=== PATIENT | male | born 1960 | race Caucasian/White ===

== ENCOUNTER 2018-10-04 03:59 | Inpatient (IN) | payer BC ==
[~2018-10-04] VITALS: Ht 177.8 cm; Wt 125.6 kg
--- NOTE | 2018-10-04 04:53 | PHYS DOC ---
Adult General Chief Complaint Chief Complaint: MULTIPLE COMPLAINTS HPI HPI 58-year-old male presents with 2 day history of fever and chills. The patient has alternated between hot and cold. He has had some shaking chills and cold sweats. He checked his temperature one time and it was 102.5. It improved after Tylenol. His last Tylenol dose was 7 hours ago. The patient has felt nauseous, but does not have abdominal pain. He is not vomiting. He's had no diarrhea. He has not had any bowel movement today. There is no area of pain or discomfort. He denies dysuria or urinary frequency. He's had decreased urination. (JOSE CAVANAUGH DO) Review of Systems Review of Systems Constitutional: Fever and chills[] Eyes: Denies change in visual acuity, redness, or eye pain [] HENT: Denies nasal congestion or sore throat [] Respiratory: Denies cough or shortness of breath [] Cardiovascular: No additional information not addressed in HPI [] GI: Denies abdominal pain, nausea, vomiting, bloody stools or diarrhea [] : Denies dysuria or hematuria [] Musculoskeletal: Denies back pain or joint pain [] Integument: Denies rash or skin lesions [] Neurologic: Denies headache, focal weakness or sensory changes [] Endocrine: Denies polyuria or polydipsia [] All other systems were reviewed and found to be within normal limits, except as documented in this note. (JOSE CAVANAUGH DO) Current Medications Current Medications Current Medications Medications (Trade) Dose Ordered Sig/Cornelia Start Time Stop Time Status Last Admin Dose Admin Ondansetron HCl (Zofran) 4 mg 1X ONCE 10/04/18 05:00 10/04/18 05:01 Sodium Chloride 1,000 ml @ 1,000 mls/hr 1X ONCE 10/04/18 05:00 10/04/18 05:59 (JOSE CAVANAUGH DO) Allergies Allergies Allergies Coded Allergies Type Severity Reaction Last Updated Verified No Known Drug Allergies 10/04/18 No (JOSE CAVANAUGH DO) Physical Exam Physical Exam Constitutional: Well developed, obese, well nourished, no acute distress, non- toxic appearance. [] HENT: Normocephalic, atraumatic, bilateral external ears normal, oropharynx moist, no oral exudates, nose normal. [] Eyes: PERRLA, EOMI, conjunctiva normal, no discharge. [] Neck: Normal range of motion, no tenderness, supple, no stridor. [] Cardiovascular:Heart rate regular rhythm, no murmur [] Lungs & Thorax: Bilateral breath sounds clear to auscultation [] Abdomen: Bowel sounds normal, soft, no tenderness, no masses, no pulsatile masses. [] Skin: Warm, dry, no erythema, no rash. Obvious sun exposure. [] Back: No tenderness, no CVA tenderness. [] Extremities: No tenderness, no cyanosis, no clubbing, ROM intact, no edema. [] Neurologic: Alert and oriented X 3, normal motor function, normal sensory function, no focal deficits noted. [] Psychologic: Affect normal, judgement normal, mood normal. [] (JOSE CAVANAUGH DO) EKG EKG [] (JOSE CAVANAUGH DO) Radiology/Procedures Radiology/Procedures [] (JOSE CAVANAUGH DO) Radiology/[place] [id number] IMAGING REPORT Signed PATIENT: FLORECITA REDMOND ACCOUNT: [id number] : 1960 LOCATION: ER AGE: 58 SEX: M EXAM STATUS: REG ER ORD. PHYSICIAN: ZEB RYDER MD REASON: fever, nausea PROCEDURE: CT ABD PELV W/ IV CONTRST ONLY Examination: CT ABD PELV W/ IV CONTRST ONLY History: Fever and nausea Comparison/Correlation: None Findings: Axial images of the abdomen and pelvis were obtained following IV contrast. Sagittal and coronal reformatted images were provided. Visualized lung bases are clear. Diffuse fatty infiltration of the liver is present. Splenomegaly is noted with liver length of 16.6 cm. Pancreas is normal. Adrenal glands are unremarkable. Small hiatal hernia is present. Gallbladder fossa is unremarkable. No surrounding inflammatory change. Very small to characterize right renal lower pole low-attenuation lesion is present. Low-attenuation lesion at the left renal upper pole is present measuring up to 1.5 cm diameter with density compatible with a cyst. No hydronephrosis. No extraluminal gas. Diverticulosis is present. No bowel obstruction. No inflammatory changes about cecum. Appendix is not delineated. Urinary bladder is partially decompressed with circumferential wall thickening without surrounding inflammation. Bony structures are unremarkable. Impression: No inflammatory process or suspicious mass lesion identified. Fatty infiltration of liver. Splenomegaly. Hiatal hernia. Diverticulosis. PQRS Compliance Statement: One or more of the following individualized dose reduction techniques were utilized for this examination: 1. Automated exposure control 2. Adjustment of the mA and/or kV according to patient size 3. Use of iterative reconstruction technique Electronically signed by: Emiliano Toth MD (10/04/2018 7:45 AM) [facility] DICTATED AND SIGNED BY: EMILIANO TOTH MD DATE: 10/04/18 0745 CC: ZEB RYDER MD; PCP,NO ~ (ZEB RYDER MD) Course & Med Decision Making Course & Med Decision Making Pertinent Labs and Imaging studies reviewed. (See chart for details) Further discussion with the patient revealed that he had a tick on his left lower abdomen. He does not believe it was therefore more than 24 hours, but is not sure. His removed what she thought was a tick from the left side of his lower abdomen just under the waistline on Thursday evening. She was not able to keep the tick because it was so small. There is a small half centimeter area of erythema around where she believes she removed the tick. The rest of the patient's workup is still pending. I am signing the patient out to Dr. Ryder at 0600. He will determine the patient's final disposition. [] (JOSE CAVANAUGH DO) Course & Med Decision Making I took over care of patient at [address] Cavanaugh. In reviewing patient's lab work, the patient has a significant leukopenia with elevated bandemia. Given fevers and bandemia, sepsis is highly suspected. Patient's urine results are indeterminant for clear-cut urinary tract infection. CT imaging shows no acute abdominal process. I contacted Dr. Mitchell for admission for IV antibiotics and IV fluids. In discussion, the possibility of ehrlichiosis was raised. In addition to IV Zosyn that was given, patient was also started on oral doxycycline. In Ehrlichia panel was ordered and results pending at time of admission. (ZEB RYDER MD) Dragon Disclaimer Dragon Disclaimer This electronic medical record was generated, in whole or in part, using a voice recognition dictation system. (JOSE CAVANAUGH DO) Departure Departure: Impression: Primary Impression: Sepsis Additional Impression: Tick bite Disposition: 09 ADMITTED INPATIENT Admitting Physician: Roque Mitchell (ZEB RYDER MD) Condition: GUARDED Referrals: PCP,NO (PCP) Problem Qualifiers Primary Impression: Sepsis Sepsis type: sepsis due to unspecified organism Qualified Codes: A41.9 - Sepsis, unspecified organism Additional Impression: Tick bite Encounter type: initial encounter Qualified Codes: W57.XXXA - Bitten or stung by nonvenomous insect and other nonvenomous arthropods, initial encounter JOSE CAVANAUGH DO Oct 04, 2018 04:53 ZEB RYDER MD Oct 04, 2018 08:14
[2018-10-04] MEDS ORDERED: ONDANSETRON PF 4 MG/2 ML VIAL. IV ONE (05:00)
[2018-10-04] MEDS ORDERED: IV NORMAL SALINE 1,000ML 1,000 ML IV ONE ×2 (05:00→07:00)
[2018-10-04 05:06] LABS: BILIRUBIN,URINE NEG (NEG); CLARITY,URINE CLEAR; COLOR,URINE YELLOW; GLUCOSE,URINE 100 mg/dL (NEG)
[2018-10-04 05:07] LABS: BACTERIA,URINE 0 /HPF (0-FEW); NITRITE,URINE POS (NEG); RBC,URINE 0 /HPF (0-2); SQUAMOUS EPITHELIAL CELL,UR OCC /LPF; UROBILINOGEN,URINE 8 mg/dL (0.2 mg/dL)
[2018-10-04 05:41] LABS: BASO % 0 % (0-3); EOS % 0 % (0-3); HEMATOCRIT 46.7 % (39.0-53.0); HEMOGLOBIN 16.4 g/dL (13.0-17.5); LYMPH # 0.3 x10^3/uL (1.0-4.8); LYMPH % 11 % (24-48); MEAN CORPUSCULAR HEMOGLOBIN 35 pg (25-35); MEAN CORPUSCULAR HGB CONC 35 g/dL (31-37); MEAN CORPUSCULAR VOLUME 100 fL (79-100); MONO # 0.2 x10^3/uL (0.0-1.1); MONO % 7 % (0-9); NEUT % 82 % (31-73); PLATELET COUNT 77 x10^3/uL (140-400); RED BLOOD COUNT 4.66 x10^6/uL (4.30-5.70); RED CELL DISTRIBUTION WIDTH 12.8 % (11.5-14.5); WHITE BLOOD COUNT 2.4 x10^3/uL (4.0-11.0)
[2018-10-04 05:52] LABS: ALBUMIN 3.1 g/dL (3.4-5.0); CALCIUM 8.1 mg/dL (8.5-10.1); CREATININE 0.9 mg/dL (0.7-1.3); GFR 86.7; POTASSIUM 3.4 mmol/L (3.5-5.1); TOTAL BILIRUBIN 1.6 mg/dL (0.2-1.0); TOTAL PROTEIN 6.1 g/dL (6.4-8.2)
[2018-10-04] MEDS ORDERED: ACETAMINOPHEN 325 MG TABLET PO ONE (06:00)
[2018-10-04 06:35] LABS: % BANDS 26 % (0-9); % BASOS 0 % (0-3); % EOS 0 % (0-5); % LYMPHS 12 % (24-48); % MONOS 4 % (0-10); % SEGS 58 % (35-66); ANISOCYTOSIS PRESENT; PLT ESTIMATE DECREASED (ADEQUATE)
[2018-10-04 07:05] LABS: INFLUENZA A PATIENT NEGATIVE (NEGATIVE); INFLUENZA B PATIENT NEGATIVE (NEGATIVE)
[2018-10-04] MEDS ORDERED: IOHEXOL 300 MG/ML 75 ML VIAL. IV ONE (07:30)
[2018-10-04] MEDS ORDERED: PIP/TAZO PER PHARMACY MC PRN (07:45)
--- NOTE | 2018-10-04 07:49 | RAD ---
Examination: CT ABD PELV W/ IV CONTRST ONLY History: Fever and nausea Comparison/Correlation: None Findings: Axial images of the abdomen and pelvis were obtained following IV contrast. Sagittal and coronal reformatted images were provided. Visualized lung bases are clear. Diffuse fatty infiltration of the liver is present. Splenomegaly is noted with liver length of 16.6 cm. Pancreas is normal. Adrenal glands are unremarkable. Small hiatal hernia is present. Gallbladder fossa is unremarkable. No surrounding inflammatory change. Very small to characterize right renal lower pole low-attenuation lesion is present. Low-attenuation lesion at the left renal upper pole is present measuring up to 1.5 cm diameter with density compatible with a cyst. No hydronephrosis. No extraluminal gas. Diverticulosis is present. No bowel obstruction. No inflammatory changes about cecum. Appendix is not delineated. Urinary bladder is partially decompressed with circumferential wall thickening without surrounding inflammation. Bony structures are unremarkable. Impression: No inflammatory process or suspicious mass lesion identified. Fatty infiltration of liver. Splenomegaly. Hiatal hernia. Diverticulosis. PQRS Compliance Statement: One or more of the following individualized dose reduction techniques were utilized for this examination: 1. Automated exposure control 2. Adjustment of the mA and/or kV according to patient size 3. Use of iterative reconstruction technique Electronically signed by: Emiliano Lu MD (10/04/2018 7:45 AM) [facility]
[2018-10-04] MEDS ORDERED: PIPERACILLIN/TAZOBACTAM 3.375 GM VIAL IV ONE (07:50)
[2018-10-04] MEDS ORDERED: IV NORMAL SALINE 50ML 50 ML ONE (07:50)
[2018-10-04] MEDS ORDERED: PIPERACILLIN/TAZOBACTAM 3.375 GM in IV NORMAL SALINE 50ML 50 ML IV ONE (08:00)
--- NOTE | 2018-10-04 08:12 | RAD ---
KUB History: Constipation, abdominal pain, fever Comparison: None. Findings: 2 supine AP views of abdomen are submitted. Exam is insufficient for evaluation for free air. Small calcification in the left pelvis is more likely phlebolith. No gas dilated bowel is identified. Impression: 1. There is a nonobstructive bowel gas pattern. Electronically signed by: Josef Jones MD (10/04/2018 8:09 AM) [facility]
[2018-10-04] MEDS ORDERED: ONDANSETRON PF 4 MG/2 ML VIAL. IV PRN (08:15)
[2018-10-04] MEDS ORDERED: DOXYCYCLINE HYCLATE 100 MG TABLET PO ONE (08:30)
[2018-10-04 09:14] VITALS: BP 150/73
[2018-10-04] MEDS: IV NORMAL SALINE 1,000ML 1,000 ML IV SCH ×3 (09:25→21:21)
[2018-10-04] MEDS: ACETAMINOPHEN 325 MG TABLET PO PRN ×2 (10:44→17:38)
--- NOTE | 2018-10-04 13:32 | HP ---
ADMIT DATE: 10/04/2018 HISTORY OF PRESENT ILLNESS: The patient is a 58-year-old male patient who came to the Emergency Room with a complaint of fevers and chills together with dry heave that started on Thursday morning. He also had some shaking chills and cold sweats. He checked his temperature yesterday afternoon when he arrived from the [place] and his temperature was 102.5. It improved after Tylenol. His last Tylenol dose was about 7 hours prior to arrival to the Emergency Room. He felt nauseous, but does not have abdominal pain. He does have some headache, but denies any vomiting or diarrhea. His urine output was declining and after getting IV fluid, he said that this is the largest amount of urine he managed to urinate in the last 48 hours. He denied any pain or discomfort, denied any dysuria or frequency. He did complain of decreased urination. He was extensively evaluated in the Emergency Room and his lab work showed that he has leukopenia and thrombocytopenia, although his hemoglobin and hematocrit are within normal limits. His chemistry showed mild hypokalemia and hyponatremia. His glucose was slightly elevated. His bilirubin and AST are slightly elevated, otherwise ALT is normal. His influenza A and B were negative. Urinalysis showed the urine was yellow, clear with a pH of 7, specific gravity of ____. The patient has had blood culture and urine sent for culture and sensitivity. He was started on Zosyn as well as doxycycline for possibility of ehrlichiosis. PAST MEDICAL HISTORY: Unremarkable. PAST SURGICAL HISTORY: Significant for left knee arthroscopic surgery. ALLERGIES: HE IS ALLERGIC TO CODEINE. PHYSICAL EXAMINATION: GENERAL: On arrival to the Emergency Room, he looked well and was slightly tachypneic, but not jaundiced, cyanosed or thyromegaly. No jugular venous distension. No lower limb edema. VITAL SIGNS: His heart rate was 95, blood pressure was 150/73, temperature went up to 102.3, respiratory rate was 22 and oxygen saturation was 95% on room air. HEAD, EYES, EARS, NOSE AND THROAT: Showed normocephalic, atraumatic. NECK: Supple. HEART: Showed normal first and second heart sounds. No gallop, rub or murmur. CHEST: Clear to auscultation. No crepitation or rhonchi. ABDOMEN: Distended, soft, nontender. No guarding or rigidity. No organomegaly. All hernial orifice intact. Bowel sounds normal. NEUROLOGIC: He is awake, alert, responding appropriately. All cranial nerves are intact. He moves extremities without difficulty. He ambulates without assistance or assistive devices. LABORATORY DATA: His lab work showed a white cell count of 2400, hemoglobin 16.4, hematocrit 46.7, MCV 100, and platelet count of 77,000 with normal manual differential showed 82% polymorphs, 11% lymphocytes, 7% monocytes. His chemistry showed a serum sodium 133, potassium 3.4, chloride 99, bicarbonate 25, anion gap of 9, BUN 9, creatinine 0.9. Estimated GFR was 87 mL per minute, his glucose was 164, lactic acid was normal at 0.8, calcium was 8.1. Total bilirubin was 1.6, AST was 68, ALT was 48, alkaline phosphatase was normal, total protein was 6.1, albumin was 3.1. Urinalysis showed the urine was yellow, clear with a pH of 7, specific gravity of 1.015, a small amount of protein, moderate amount of glucose, trace of ketones, negative for blood, positive for nitrite, negative for leukocyte esterase, 0 rbc's, 1-4 wbc's, and no bacteria. His influenza A and B were negative. He has CT scan of the abdomen and pelvis, which basically showed diffuse fatty infiltration of the liver is present, splenomegaly is noted with liver length of 16.6 cm, pancreas normal, adrenal glands are unremarkable. Small hiatal hernia is present. Gallbladder fossa is unremarkable with surrounding inflammatory changes. There is small to characterize right renal lower pole low attenuation lesion present. Low attenuation lesion at left renal upper pole is present. No hydronephrosis. No extraluminal gas or diverticulosis is present. No bowel obstruction, inflammatory changes about the cecum. Appendix is not distended. Urinary bladder is partially decompressed with circumferential wall thickening without surrounding inflammation. Bony structures are unremarkable. IMPRESSION: The patient has known inflammatory process, suspicious mass lesion identified, fatty infiltration of the liver, splenomegaly, hiatal hernia and diverticulosis. The patient was admitted with tick bite, one was about a month ago, one was then found recently; one on the back and recent one in his left groin area. He was at the [facility] and his presentation is at least consistent with ehrlichiosis and therefore, we did start him on oral doxycycline. There is no other focus of infection that we could point to; however, he has splenomegaly and has fatty infiltration of his liver. I will inquire more about his alcohol intake. MANJIT KIRKPATRICK MD DR: MURIEL/eren JOB#: [id number] / [id number]
[2018-10-04] MEDS: KETOROLAC 30 MG/ML VIAL. IV PRN ×2 (14:36→22:15)
[2018-10-04 17:24] VITALS: BP 148/80
[2018-10-04] MEDS ORDERED: POTASSIUM CHLORIDE 20 MEQ TABLET.ER. PO ONE ×3 (17:30→17:45)
[2018-10-04 19:20] VITALS: BP 145/85
[2018-10-04] MEDS: DOXYCYCLINE HYCLATE 100 MG TABLET PO SCH (20:37)
[2018-10-05] VITALS (8 sets, daily range): BP systolic 148–222; BP diastolic 72–118
[2018-10-05] MEDS: ACETAMINOPHEN 325 MG TABLET PO PRN ×4 (01:23→22:32)
[2018-10-05] MEDS: IV NORMAL SALINE 1,000ML 1,000 ML IV SCH ×4 (05:31→19:38)
[2018-10-05 06:56] LABS: BASO % 1 % (0-3); EOS % 0 % (0-3); HEMATOCRIT 46.3 % (39.0-53.0); HEMOGLOBIN 16.1 g/dL (13.0-17.5); LYMPH # 0.5 x10^3/uL (1.0-4.8); LYMPH % 26 % (24-48); MEAN CORPUSCULAR HEMOGLOBIN 35 pg (25-35); MEAN CORPUSCULAR HGB CONC 35 g/dL (31-37); MEAN CORPUSCULAR VOLUME 101 fL (79-100); MONO # 0.2 x10^3/uL (0.0-1.1); MONO % 10 % (0-9); NEUT # 1.2 x10^3uL (1.8-7.7); NEUT % 64 % (31-73); PLATELET COUNT 68 x10^3/uL (140-400); RED BLOOD COUNT 4.58 x10^6/uL (4.30-5.70); RED CELL DISTRIBUTION WIDTH 12.7 % (11.5-14.5)
[2018-10-05 07:00] LABS: CALCIUM 7.6 mg/dL (8.5-10.1); CREATININE 0.7 mg/dL (0.7-1.3); GFR 115.8; POTASSIUM 3.6 mmol/L (3.5-5.1)
[2018-10-05 07:03] LABS: WHITE BLOOD COUNT 1.8 x10^3/uL (4.0-11.0)
[2018-10-05 08:32] LABS: % ATYL 2 % (0-0); % BANDS 20 % (0-9); % LYMPHS 15 % (24-48); % METAS 2 % (0-0); % MONOS 4 % (0-10); % SEGS 57 % (35-66); PLT ESTIMATE ADEQUATE (ADEQUATE)
[2018-10-05] MEDS: DOXYCYCLINE HYCLATE 100 MG TABLET PO SCH ×2 (08:44→21:04)
[2018-10-05] MEDS: KETOROLAC 30 MG/ML VIAL. IV PRN (15:02)
[2018-10-05] MEDS ORDERED: POTASSIUM CHLORIDE 20 MEQ TABLET.ER. PO ONE (17:30)
[2018-10-05] MEDS: LACTOBACILLUS RHAMNOSUS GG 1 CAPSULE. PO SCH (21:04)
[2018-10-05] MEDS: ONDANSETRON PF 4 MG/2 ML VIAL. IV PRN (22:32)
[2018-10-05] MEDS: hydrALAZINE 20 MG/ML VIAL. IV PRN (22:48)
[2018-10-06] VITALS (13 sets, daily range): BP systolic 147–185; BP diastolic 67–103
[2018-10-06] MEDS: IV NORMAL SALINE 1,000ML 1,000 ML IV SCH ×2 (02:19→13:15)
[2018-10-06] MEDS: hydrALAZINE 20 MG/ML VIAL. IV PRN ×2 (03:47→16:17)
--- NOTE | 2018-10-06 04:37 | PN ---
DATE: 10/05/2018 SUBJECTIVE: The patient is resting slightly propped up in bed, no apparent distress. He continued to have poor appetite. His last temperature was last night around 9 o'clock and was 101.1 and highest since last night was 99.1. He continued to have generalized aches and pains. PHYSICAL EXAMINATION: GENERAL: When I examined him this morning, he looked well and was clearly in no apparent respiratory distress. No pallor, jaundice, cyanosis, or thyromegaly. No jugular venous distension. No limb edema. VITAL SIGNS: His heart rate was 83, blood pressure was 148/72, temperature was 98.2, respiratory rate was 22, and oxygen saturation was 96% on room air. HEAD, EYES, EARS, NOSE AND THROAT: Showed normocephalic, atraumatic. NECK: Supple. HEART: Showed normal first and second heart sounds. No gallop, rub or murmur. CHEST: Clear to auscultation. No crepitation or rhonchi. ABDOMEN: Distended, soft, nontender. NEUROLOGIC: He was awake, alert, responding appropriately. Cranial nerves intact. He moves extremities without difficulty. His intake over the last 24 hours was 1000. No output was recorded. LABORATORY DATA: His lab work this morning showed a white cell count of 1800 of which 64% were polymorphs and 26% lymphocytes. His chemistry showed a serum sodium 135, potassium 3.6, chloride 102, bicarbonate 24, anion gap of 9, BUN 8, creatinine 0.7, estimated GFR was 116 mL per minute, his glucose 103, calcium was 7.6. Urinalysis was unremarkable and his influenza A and B were negative. ASSESSMENT: 1. Fever, leukopenia, and thrombocytopenia. Clinical picture consistent with ehrlichiosis. He is already on doxycycline 100 mg twice a day. 2. Hypokalemia, resolved. 3. Other possible etiology is obviously viral infection. PLAN: To continue with IV fluid, continue with doxycycline. I will repeat all his lab works tomorrow and advance his diet as tolerated. MANJIT KIRKPATRICK MD DR: MURIEL/eren JOB#: [id number] / [id number]
[2018-10-06] MEDS: KETOROLAC 30 MG/ML VIAL. IV PRN ×2 (06:09→12:12)
[2018-10-06] MEDS: ACETAMINOPHEN 325 MG TABLET PO PRN ×2 (06:10→20:12)
[2018-10-06 06:42] LABS: HEMOGLOBIN 15.1 g/dL (13.0-17.5); RED BLOOD COUNT 4.39 x10^6/uL (4.30-5.70); RED CELL DISTRIBUTION WIDTH 12.9 % (11.5-14.5); WHITE BLOOD COUNT 3.3 x10^3/uL (4.0-11.0)
[2018-10-06 06:44] LABS: ALBUMIN 2.9 g/dL (3.4-5.0); ALBUMIN/GLOBULIN RATIO 1.1 (1.0-1.7); CALCIUM 7.7 mg/dL (8.5-10.1); CREATININE 0.5 mg/dL (0.7-1.3); GFR 170.8; POTASSIUM 3.6 mmol/L (3.5-5.1); TOTAL BILIRUBIN 1.3 mg/dL (0.2-1.0); TOTAL PROTEIN 5.5 g/dL (6.4-8.2)
[2018-10-06] MEDS: amLODIPine BESYLATE 10 MG TABLET PO SCH (08:42)
[2018-10-06] MEDS: DOXYCYCLINE HYCLATE 100 MG TABLET PO SCH ×2 (08:42→22:18)
[2018-10-06] MEDS: LACTOBACILLUS RHAMNOSUS GG 1 CAPSULE. PO SCH ×2 (08:42→22:18)
[2018-10-06 14:08] LABS: EHRICHIA(HGE)AB IGG Negative (Neg:<1:64); EHRLICHIA(HME)AB Negative (Neg:<1:20)
[2018-10-06] MEDS: hydrALAZINE 25 MG TABLET PO SCH (19:40)
[2018-10-06] MEDS: ONDANSETRON PF 4 MG/2 ML VIAL. IV PRN ×2 (21:09→22:19)
[2018-10-07] VITALS (13 sets, daily range): BP systolic 142–185; BP diastolic 74–109
--- NOTE | 2018-10-07 02:02 | PN ---
DATE: 10/06/2018 SUBJECTIVE: The patient is resting slightly propped up in bed, in no apparent respiratory distress. He continued to have some headache, generalized aches and pains, but had spike in his temperature early this morning. However, since then, his temperature has been within normal range. He has been up and about and has been able to eat some of his food. PHYSICAL EXAMINATION: GENERAL: When I saw him this afternoon, he looked well and was clearly in no apparent respiratory distress. No pallor, jaundice, cyanosis, or thyromegaly. No jugular venous distension. No limb edema. VITAL SIGNS: His heart rate was 75, blood pressure 153/88, temperature was 98.2, respiratory rate 20, and oxygen saturation was 97%. HEAD, EYES, EARS, NOSE AND THROAT: Normocephalic, atraumatic. NECK: Supple. HEART: Showed normal first and second heart sounds. No gallop, rub, or murmur. CHEST: Clear to auscultation. No crepitation or rhonchi. ABDOMEN: Distended, soft, nontender. No guarding or rigidity. No organomegaly. All hernial orifices intact. Bowel sounds normal. NEUROLOGIC: He was awake, alert, and responding appropriately. Cranial nerves intact. He moves extremities without difficulty.. His intake over the last 24 hours was 4100, output was 200. LABORATORY DATA: As of this morning, his white cell count is up to 3300, hemoglobin 15, hematocrit 44, MCV 100, and platelet count of 69,000. His serum sodium was 133, potassium 3.6, chloride 101, bicarbonate 24, anion gap of 8, BUN 6, creatinine 0.5, estimated GFR was 170 mL per minute, his glucose 132, and calcium was 7.7. Total bilirubin, AST and ALT are elevated. Alkaline phosphatase was normal. Total protein was 5.5, albumin was 2.9. Urinalysis was unremarkable. Serology showed that his Clostridium difficile toxins were negative. Ehrlichia IgG antibody and IgM antibodies were negative. Ehrlichia chaffeensis IgG antibodies and IgM antibodies were negative. His influenza A and B were negative. IMPRESSION: In summary, this is a 58-year-old male patient who has had tick bites and came with fever, leukopenia, and thrombocytopenia and initial diagnosis was suspicious for possible ehrlichiosis, however, his testing was negative. Other possibilities obviously some form of viral illness, so I did send acute hepatitis serology. We will repeat all his lab work tomorrow and they are improving. He will be discharged home. MANJIT KIRKPATRICK MD DR: MURIEL/eren JOB#: [id number] / [id number]
[2018-10-07] MEDS: hydrALAZINE 20 MG/ML VIAL. IV PRN ×2 (05:52→13:27)
[2018-10-07 06:16] LABS: HEMATOCRIT 43.8 % (39.0-53.0); HEMOGLOBIN 15.4 g/dL (13.0-17.5); RED BLOOD COUNT 4.39 x10^6/uL (4.30-5.70); RED CELL DISTRIBUTION WIDTH 12.9 % (11.5-14.5)
[2018-10-07 06:24] LABS: CALCIUM 8.4 mg/dL (8.5-10.1); CREATININE 0.6 mg/dL (0.7-1.3); GFR 138.4; POTASSIUM 3.4 mmol/L (3.5-5.1); TOTAL BILIRUBIN 1.1 mg/dL (0.2-1.0); TOTAL PROTEIN 6.1 g/dL (6.4-8.2)
[2018-10-07] MEDS ORDERED: POTASSIUM CHLORIDE 20 MEQ TABLET.ER. PO ONE (07:30)
[2018-10-07] MEDS: ONDANSETRON PF 4 MG/2 ML VIAL. IV PRN ×2 (08:39→16:34)
[2018-10-07] MEDS: hydrALAZINE 25 MG TABLET PO SCH ×2 (09:21→14:15)
[2018-10-07] MEDS: ACETAMINOPHEN 325 MG TABLET PO PRN (09:22)
[2018-10-07] MEDS: amLODIPine BESYLATE 10 MG TABLET PO SCH (09:22)
[2018-10-07] MEDS: LACTOBACILLUS RHAMNOSUS GG 1 CAPSULE. PO SCH (09:22)
[2018-10-07] MEDS: DOXYCYCLINE HYCLATE 100 MG TABLET PO SCH (09:22)
[2018-10-07] MEDS: oxyCODONE/APAP 5/325 1 TAB TABLET PO PRN ×2 (10:39→17:03)
[2018-10-07] MEDS ORDERED: hydrALAZINE 25 MG TABLET PO ONE (15:00)
[2018-10-07] MEDS ORDERED: HYDR-2869 PO (16:33)
[2018-10-07] MEDS ORDERED: AMLO10TA8 PO (16:33)
[2018-10-07] MEDS ORDERED: hydrALAZINE 25 MG TABLET PO SCH (21:00)
--- NOTE | 2018-10-08 01:07 | DS ---
DATE OF DISCHARGE: 10/07/2018 HOSPITAL COURSE: The patient is a 58-year-old male patient who came initially with fever, was found to have leukopenia and thrombocytopenia. He has a history of tick bite twice and therefore initially we thought he might have ehrlichiosis; however, subsequently lab test revealed that Ehrlichia IgG and IgM antibodies were negative. His influenza A and B were negative. He did have initially diarrhea and his C. diff toxins were negative. He has a history of excessive alcohol drinking and his blood pressure started trending up, and we did start him on amlodipine and hydralazine, although his blood pressure according to him is somewhat on the higher side, although has never had any treatment for it. In any case, he has been afebrile for more than 72 hours. His white cell count is trending upward. In fact, when he came, it went down to less than 1.8 and today it is 5. His platelets are trending upward from 77 to 86. We did send acute hepatitis serology, which is still pending. PHYSICAL EXAMINATION: GENERAL: When I saw him this afternoon, he looked well and was clearly in no apparent respiratory distress. No pallor, jaundice or cyanosis from thyromegaly. No jugular venous distension. No limb edema. VITAL SIGNS: His heart rate was 78, blood pressure was 142/80, temperature was 99.3, his respiratory rate was 20, and oxygen saturation was 96% on room air. HEAD, EYES, EARS, NOSE AND THROAT: Showed normocephalic, atraumatic. NECK: Supple. HEART: Showed normal first and second heart sounds. No gallop, rub or murmur. CHEST: Clear to auscultation. No crepitation or rhonchi. ABDOMEN: Distended, soft, nontender. No guarding or rigidity. No organomegaly. All hernial orifices intact. Bowel sounds normal. NEUROLOGIC: He was awake, alert, responding appropriately. All cranial nerves intact. He moves extremities without difficulty, ambulates without assistance or assistive devices. His intake over the last 24 hours was 2620, output was ____. LABORATORY DATA: His lab work as of this morning showed a white cell count 5000, hemoglobin 15, hematocrit 44, MCV 100, and platelet count of 86,000. Serum sodium was 136, potassium 3.4, chloride 102, bicarbonate 26, anion gap of 8, BUN 6, creatinine 0.6, estimated GFR was 138 mL per minute, his glucose 124, calcium was 8.4. His total bilirubin is slightly high, but trending down from 1.6 to 1.1. His AST, ALT slightly elevated. Alkaline phosphatase normal. Total protein was 6.1, albumin 3. His urinalysis was unremarkable. His nasal screen for MRSA with PCR was negative. His C. diff toxins were negative. Ehrlichia IgA and IgM and Ehrlichia chaffeensis IgG and IgM were both negative. Influenza A and B were negative. Hepatitis serology is still pending. DISCHARGE MEDICATIONS: The patient was discharged home to continue on amlodipine 10 mg once a day, hydralazine 50 mg 3 times a day, Percocet 5/325 one tablet every 4 hours as well as Zofran 4 mg. FINAL DISCHARGE DIAGNOSES: 1. Viral febrile illness with leukopenia, thrombocytopenia and transaminitis. 2. Accelerated hypertension for which we started him on amlodipine and hydralazine. The patient will follow with his primary care physician. Apparently, Dr. Howard has a walk-in clinic and was advised to call the hospital to find out the result of this acute hepatitis serology. I did trauma counsellor him for alcohol and may be at least alcohol withdrawal is partly contributing to his elevated high blood pressure. MANJIT KIRKPATRICK MD DR: MURIEL/eren JOB#: [id number] / [id number]
== END 2018-10-07 17:30 | disposition home or self-care (01) | DRG 872 ==
LOC: ER 03:59 → ICU 08:06
PROVIDERS: ADMIT Internal Medicine; ATTEND Internal Medicine
DX: A41.9 Sepsis, unspecified organism (principal); A77.40 Ehrlichiosis, unspecified; E87.1 Hypo-osmolality and hyponatremia; W57.XXXA Bitten or stung by nonvenomous insect and other nonvenomous arthropods, initial encounter; D69.6 Thrombocytopenia, unspecified; D72.819 Decreased white blood cell count, unspecified; K76.0 Fatty (change of) liver, not elsewhere classified; K44.9 Diaphragmatic hernia without obstruction or gangrene; K57.90 Diverticulosis of intestine, part unspecified, without perforation or abscess without bleeding; I10 Essential (primary) hypertension; E87.6 Hypokalemia; Y93.89 Activity, other specified; Y92.89 Other specified places as the place of occurrence of the external cause; Y99.8 Other external cause status; Z88.5 Allergy status to narcotic agent
CPT/HCPCS: 36415; 74018; 74177; 80048; 80053; 81001; 83605; 85007; 85025; 85027; 86666; 86705; 86709; 86803; 87040; 87086; 87340; 87493; 87641; 87804; 96361; 96365; 96375; J0360; J1885; J2405; J2543; Q9967; 99285-25; J7030